=== PATIENT | female | born 1990 ===

== ENCOUNTER 2020-01-01 01:11 | Emergency (ER) | payer MEDICAID ==
[~2020-01-01] VITALS: Ht 167.6 cm; Wt 73.0 kg
[2020-01-01 01:14] VITALS: BP 146/98
[2020-01-01] MEDS ORDERED: KETOROLAC 30 MG/1 ML ONE (01:49)
--- NOTE | 2020-01-01 01:58 | NUR ---
PT MEDICATED PER EMAR. PT LAYED SUPINE WITH L LEG ELEVATED AND ICE PACK APPLIED TO L KNEE
[2020-01-01] MEDS ORDERED: KETOROLAC 30 MG/1 ML IM ONE (02:00)
--- NOTE | 2020-01-01 04:13 | NUR ---
PT DENIED ANY CHANCE OF AND DENIED KIDNEY ISSUES
[2020-01-01] MEDS ORDERED: OMNIPAQUE 350 MG/ML, 100ML BOTTLE ONE (04:48)
== END 2020-01-01 05:52 | disposition home or self-care (01) ==
LOC: ED 03:11
DX: S82.122A Displaced fracture of lateral condyle of left tibia, initial encounter for closed fracture (principal); G89.11 Acute pain due to trauma; W01.0XXA Fall on same level from slipping, tripping and stumbling without subsequent striking against object, initial encounter; Y93.89 Activity, other specified; Y92.098 Other place in other non-institutional residence as the place of occurrence of the external cause; Y99.8 Other external cause status
CPT/HCPCS: 29505; 73564; 73700; 73706; 96372; 99285; J1885; Q9967; 29515

== ENCOUNTER 2020-01-07 05:50 | Inpatient (IN) | payer MEDICAID ==
[~2020-01-07] VITALS: Ht 167.6 cm; Wt 72.7 kg
[2020-01-07 05:54] VITALS: BP 130/93
--- NOTE | 2020-01-07 06:06 | NUR ---
AMUSEMENT PARK WORKER: [facility] VIDEO TOBACCO FEEDER CATCHER USED FOR ASSESSMENT, TOBACCO FEEDER CATCHER ID [id number]
--- NOTE | 2020-01-07 06:32 | NUR ---
SAW DR ARAGON, TIBIAL PLAT FX AFTER SHOWER FALL, SEEN HERE 12/31, COMPLAIN OF PAIN, DID NOT TAKE PAIN MEDS
[2020-01-07] MEDS ORDERED: OXYcodone 5 MG/5 ML ORAL.SOL UDC PO PRN (07:30)
[2020-01-07] MEDS ORDERED: LABETALOL 5MG/ML, 20ML IV PRN (07:30)
[2020-01-07] MEDS ORDERED: PROMETHAZINE 25 MG SUPP PR PRN (07:30)
[2020-01-07] MEDS ORDERED: hydrALAzine 20 MG/ML, 1ML IV PRN (07:30)
[2020-01-07] MEDS ORDERED: LORazepam 2 MG/ML, 1ML IVPush PRN (07:30)
[2020-01-07] MEDS ORDERED: HYDROmorphone 1 MG/ML, 1ML INJ IVPush PRN (07:30)
[2020-01-07] MEDS ORDERED: ONDANSETRON 2MG/ML, 2ML IVPush PRN (07:30)
[2020-01-07] MEDS ORDERED: METHOCARBAMOL 1,000 MG in DEXTROSE 5% 100 ML IV PRN (07:30)
[2020-01-07] MEDS ORDERED: EPHEDRINE 50 MG/ML, 1ML IVPush PRN (07:30)
[2020-01-07] MEDS ORDERED: ACETAMINOPHEN 325 MG TABLET PO PRN (07:30)
[2020-01-07] MEDS ORDERED: KETOROLAC 30 MG/1 ML IVPush PRN (07:30)
--- NOTE | 2020-01-07 07:53 | NUR ---
PT URINE AND COVID COLLECTED AND SENT TO LAB. REPORT CALLED TO ANIBAL [facility]U. PIV INSERTED.
[2020-01-07 08:15] LABS: HCG UR SG 1.017 (1.003-1.030)
[2020-01-07] MEDS ORDERED: BUPIVACAINE/PF-EPI 0.5% 1:200K INFIL ONE (09:24)
[2020-01-07] MEDS: MEPERIDINE/PF 25MG/0.5ML IVPush PRN ×2 (10:40→10:51)
[2020-01-07] MEDS: FENTANYL PF 100 MCG/2ML IV PRN ×3 (11:00→11:16)
== END 2020-01-07 13:30 | disposition home or self-care (01) | DRG 313 ==
LOC: OR 07:59 → ORIP 08:02
PROVIDERS: ADMIT Orthopaedic Surgery; ATTEND Orthopaedic Surgery
PROC: 0QSH04Z Reposition Left Tibia with Internal Fixation Device, Open Approach (ICD-10-PCS; principal; 2020-01-07 08:30)
DX: S82.142A Displaced bicondylar fracture of left tibia, initial encounter for closed fracture (principal); W18.39XA Other fall on same level, initial encounter; Z20.828 Contact with and (suspected) exposure to other viral communicable diseases; Y93.89 Activity, other specified; Y92.89 Other specified places as the place of occurrence of the external cause; Y99.8 Other external cause status
CPT/HCPCS: 76000; 81025; 87635; 99285; C1713; J2175; J2405; J3010; C1762